=== PATIENT | male | born 1970 | race African-American/Black ===

== ENCOUNTER 2023-01-07 01:57 | Emergency (ER) | payer SELFPAY ==
--- NOTE | ~2023-01-07 | XR_ITS ---
AP and lateral views of the right tibia/fibula Clinical History: Pain Findings: No acute fracture or dislocation is seen. Osseous alignment is anatomic. Joint spaces are p reserved without significant erosive or degenerative change. Soft tissues are unremarkable. Impression: Unremarkable right tib-fib radiographs. Reviewed, dictated and finalized at [facility]. Impression: Unremarkable right tib-fib radiographs.
[2023-01-07 02:00] VITALS: BP 144/100; PULSE 86; RESP 14; TEMP 36.6; O2SAT 98
--- NOTE | 2023-01-07 02:22 | ED.GENADULT ---
HPI - General Adult General Chief complaint: Extremity Injury, Lower Stated complaint: leg pain Time Seen by Provider: 01/07/23 02:07 History of Present Illness HPI narrative: Patient is a 52-year-old gentleman who presents emergency department with chief complaint of right leg pain. The patient reports that he has been having pain in his right leg for some period of time he reports that his been seen in multiple facilities since then. The patient reports that he keeps being told that everything will be okay and that he should follow-up with his primary care provider the patient states that he wanted to come to the ER tonight The patient reports no new injuries reports no fever no chills denies suicidal or homicidal ideation Review of Systems Review of Systems: A 10 system review of systems was completed on the patient and is negative except for what is stated in the HPI. Nursing and ancillary documentation was reviewed. Exam Narrative: GENERAL: Well-appearing, well-nourished, and in no acute distress. HEAD: Normocephalic, atraumatic. EYES: PERRLA and EOMI. ENT: Nares clear, no rhinorrhea or epistaxis. Mucous membranes moist. NECK: Supple. CHEST: Clear to auscultation. No respiratory distress. HEART: Regular rate and rhythm. No murmur heard. Normal peripheral pulses. ABDOMEN: Soft, nontender, nondistended, normal active bowel sounds. EXTREMITIES: Normal range of motion. No edema. SKIN: Warm, dry, no rash. NEURO: No focal deficits. Alert and oriented x3. PSYCH: Normal mood and affect. Course Vital Signs Vital signs: Vital Signs Temperature 36.6 C 01/07/23 02:00 Pulse Rate 86 01/07/23 02:00 Respiratory Rate 14 01/07/23 02:00 Blood Pressure 144/100 H 01/07/23 02:00 Pulse Oximetry 98 01/07/23 02:00 Oxygen Delivery Room Air 01/07/23 02:00 Temperature 36.6 C 01/07/23 02:00 Pulse Rate 86 01/07/23 02:00 Respiratory Rate 14 01/07/23 02:00 Blood Pressure 144/100 H 01/07/23 02:00 Pulse Oximetry 98 01/07/23 02:00 Oxygen Delivery Room Air 01/07/23 02:00 Medical Decision Making MDM Narrative Medical decision making narrative: Differential diagnosis includes fracture, fluid overload, chronic pain Plain film x-ray showed no evidence of fracture Laboratory studies were obtained showed a normal CBC electrolytes were within normal limits BNP was less than 20 EtOH was undetectable Patient is not suicidal or homicidal the patient can be discharged to follow-up with his primary care provider Vital Signs Vital Signs: Vital Signs Temperature 36.6 C 01/07/23 02:00 Pulse Rate 86 01/07/23 02:00 Respiratory Rate 14 01/07/23 02:00 Blood Pressure 144/100 H 01/07/23 02:00 Pulse Oximetry 98 01/07/23 02:00 Oxygen Delivery Room Air 01/07/23 02:00 Temperature 36.6 C 01/07/23 02:00 Pulse Rate 86 01/07/23 02:00 Respiratory Rate 14 01/07/23 02:00 Blood Pressure 144/100 H 01/07/23 02:00 Pulse Oximetry 98 01/07/23 02:00 Oxygen Delivery Room Air 01/07/23 02:00 Lab Data 01/07/23 02:25 01/07/23 02:25 Labs: Lab Results 01/07/23 Range/Units 02:25 WBC 7.1 (4.5-10.0) K/mm3 RBC 4.54 L (4.6-6.20) M/mm3 Hgb 13.2 L (14.0-18.0) g/dL Hct 39.3 L (42.0-52.0) % MCV 86.6 (80-100) fl MCH 29.1 (26-34) pg MCHC 33.6 (32-36) g/dl RDW 13.7 (11.5-14.5) % Plt Count 278 (150-375) k/mm3 MPV 9.2 (7.4-10.4) fl Immature Gran % (Auto) 0.1 (0-0.5) % Neut % (Auto) 45.3 L (45.5-73.1) % Lymph % (Auto) 42.6 (18.3-44.2) % [place] % (Auto) 9.3 H (2.6-8.5) % Eos % (Auto) 2.1 (0-4.4) % Baso % (Auto) 0.6 (0.2-1.2) % Lymph # (Auto) 3.02 (0.9-3.2) K/mm3 [place] # (Auto) 0.7 H (0.1-0.6) K/mm3 Eos # (Auto) 0.2 (0-0.3) K/mm3 Baso # (Auto) 0.0 (0.0-0.1) K/mm3 Abs Immat Gran (auto) 0.01 (0.00-0.031) K/mm3 Absolute Neuts (auto) 3.2 (1.3-6.7) K/mm3 Absolute Nucleated RBC 0.0 (0.0-
[2023-01-07 02:31] LABS: Basophils Percent Auto 0.6 % (0.2-1.2); Eosinophils Absolute Auto 0.2 K/mm3 (0-0.3); Eosinophils Percent Auto 2.1 % (0-4.4); Hematocrit 39.3 % (42.0-52.0); Hemoglobin 13.2 g/dL (14.0-18.0); Immature Granulocyte Absolute 0.01 K/mm3 (0.00-0.031); Immature Granulocyte Percent A 0.1 % (0-0.5); Lymphocytes Absolute Auto 3.02 K/mm3 (0.9-3.2); Lymphocytes Percent Auto 42.6 % (18.3-44.2); Mean Corpuscular HGB Conc 33.6 g/dl (32-36); Mean Corpuscular Hemoglobin 29.1 pg (26-34); Mean Corpuscular Volume 86.6 fl (80-100); Mean Platelet Volume 9.2 fl (7.4-10.4); Monocytes Absolute Auto 0.7 K/mm3 (0.1-0.6); Monocytes Percent Auto 9.3 % (2.6-8.5); Neutrophils Absolute Auto 3.2 K/mm3 (1.3-6.7); Neutrophils Percent Auto 45.3 % (45.5-73.1); Platelet Count Result 278 k/mm3 (150-375); Red Blood Count 4.54 M/mm3 (4.6-6.20); Red Cell Distribution Width 13.7 % (11.5-14.5); White Blood Count 7.1 K/mm3 (4.5-10.0)
[2023-01-07 02:39] LABS: Ethanol < 10 mg/dL (<10)
[2023-01-07 02:41] LABS: Alanine Aminotransferase 31 U/L (6-50); Albumin Level 4.4 g/dL (3.5-5.1); Alkaline Phosphatase 63 U/L (38-126); Anion Gap 5 mmol/L (8-16); Aspartate Amino Transferase 39 U/L (17-59); Bilirubin,Total 0.6 mg/dL (0.2-1.3); Blood Urea Nitrogen 15 mg/dL (9-20); Carbon Dioxide 33 mmol/L (22-30); Chloride 98 mmol/L (98-107); Estimated CRCL calculation 73 ml/min; Estimated Glomerular Filt Rate > 60; Glucose 109 mg/dL (65-110); Potassium 3.9 mmol/L (3.4-5.0); Sodium 136 mmol/L (137-145)
[2023-01-07 02:48] LABS: NT Pro B Type Natriuretic Pept < 20 pg/mL (19.9-100)
[2023-01-07 04:03] VITALS: BP 128/84; PULSE 86; RESP 15; O2SAT 98
== END 2023-01-07 04:07 | disposition home or self-care (01) ==
LOC: ANHED 03:19
PROVIDERS: Emergency Provider Emergency Medicine
DX: M79.604 Pain in right leg (principal)
CPT/HCPCS: 36415; 73590; 80053; 80307; 83880; 85025; 99283